=== PATIENT | male | born 1960 | race Caucasian/White ===

== ENCOUNTER 2017-06-28 11:21 | Emergency (ER) | payer MEDICARE, OTHER ==
[~2017-06-28] VITALS: Ht 170.2 cm; Wt 68.0 kg
[~2017-06-28 11:21] MED LIST: ARIP5TAB4 PO; ASPI-1071 PO; ASPI81TA52 PO; ATOR20TA66 PO; CARV3.12 PO; CARV3.122 PO; CLIN150C98 PO; FURO-150 PO; INSU100V9 SQ; LISI10TA4 PO; PANT40TA4 PO
[2017-06-28] MEDS ORDERED: CLIN-80 PO (13:11)
[2017-06-28 13:15] VITALS: BP 162/95
== END 2017-06-28 13:16 | disposition home or self-care (01) ==
LOC: ER 11:22
DX: K04.7 Periapical abscess without sinus (principal); K05.10 Chronic gingivitis, plaque induced; M25.511 Pain in right shoulder; E78.00 Pure hypercholesterolemia, unspecified; I10 Essential (primary) hypertension; E11.9 Type 2 diabetes mellitus without complications; J44.9 Chronic obstructive pulmonary disease, unspecified; Z87.891 Personal history of nicotine dependence; Z85.47 Personal history of malignant neoplasm of testis; Z88.0 Allergy status to penicillin; Z79.82 Long term (current) use of aspirin; Z79.4 Long term (current) use of insulin; Z79.899 Other long term (current) drug therapy; Z86.19 Personal history of other infectious and parasitic diseases
CPT/HCPCS: 73030; 93005; 99284

== ENCOUNTER 2017-07-18 12:09 | Emergency (ER) | payer MEDICARE, OTHER ==
[~2017-07-18 12:09] MED LIST changes: +CLIN-80 PO
== END 2017-07-18 13:44 | disposition left against medical advice (07) ==
LOC: ER 12:10
DX: H53.8 Other visual disturbances (principal); Z53.21 Procedure and treatment not carried out due to patient leaving prior to being seen by health care provider

== ENCOUNTER 2019-04-03 18:29 | Emergency (ER) | payer MEDICARE, OTHER ==
[~2019-04-03] VITALS: Ht 170.2 cm; Wt 56.5 kg
[~2019-04-03 18:29] MED LIST changes: +ARIP5TAB14 PO; -ARIP5TAB4 PO; -CLIN-80 PO
[2019-04-03 18:46] VITALS: BP 180/96
[2019-04-03 20:38] LABS: CLARITY,URINE CLEAR (Clear); COLOR,URINE YELLOW (Yellow); GLUCOSE, URINE NEGATIVE (Neg); KETONES,URINE NEGATIVE (Neg); LEUKOCYTE ESTERASE ,URINE NEGATIVE (Neg); NITRITES, URINE NEGATIVE (Neg); OCCULT BLOOD,URINE NEGATIVE (Neg); PROTEIN,URINE NEGATIVE (Neg); UROBILINOGEN,URINE 0.2 E.U/dL (0.2-1.0)
[2019-04-03 20:47] LABS: UA COLLECTION TYPE VOIDED
== END 2019-04-03 20:34 | disposition left against medical advice (07) ==
LOC: ER 18:29
DX: K40.90 Unilateral inguinal hernia, without obstruction or gangrene, not specified as recurrent (principal); E78.00 Pure hypercholesterolemia, unspecified; I10 Essential (primary) hypertension; J44.9 Chronic obstructive pulmonary disease, unspecified; E11.9 Type 2 diabetes mellitus without complications; I25.10 Atherosclerotic heart disease of native coronary artery without angina pectoris; Z88.0 Allergy status to penicillin; Z79.899 Other long term (current) drug therapy; Z79.82 Long term (current) use of aspirin; Z86.19 Personal history of other infectious and parasitic diseases
CPT/HCPCS: 81003; 99283

== ENCOUNTER 2020-01-16 19:14 | Emergency (ER) | payer OTHER, MEDICARE ==
[~2020-01-16] VITALS: Ht 167.6 cm; Wt 75.0 kg
[2020-01-16 20:03] VITALS: BP 159/85
== END 2020-01-16 20:04 ==
LOC: EEVIPCON 19:15 → ER 19:15
DX: R07.81 Pleurodynia (principal); E78.00 Pure hypercholesterolemia, unspecified; I10 Essential (primary) hypertension; J44.9 Chronic obstructive pulmonary disease, unspecified; E11.9 Type 2 diabetes mellitus without complications; Z86.19 Personal history of other infectious and parasitic diseases; Z85.9 Personal history of malignant neoplasm, unspecified; Z87.891 Personal history of nicotine dependence; Z88.0 Allergy status to penicillin; Z79.82 Long term (current) use of aspirin; Z79.899 Other long term (current) drug therapy
CPT/HCPCS: 71111; 93005; 99283

== ENCOUNTER 2023-03-19 12:12 | Emergency (ER) | payer MEDICARE, OTHER ==
[~2023-03-19] VITALS: Ht 170.2 cm; Wt 80.0 kg
[~2023-03-19 12:12] MED LIST changes: +LISI10TA27 PO; -LISI10TA4 PO; -PANT40TA4 PO; +PANT40TA54 PO
[2023-03-19 12:16] VITALS: BP 157/91; PULSE 89; RESP 18; TEMP 98; O2SAT 98
--- NOTE | 2023-03-19 13:26 | NUR ---
NOT IN LOBBY FOR HOURLY VITALS
--- NOTE | 2023-03-19 14:17 | NUR ---
pt not in lobby for hourly vitals
== END 2023-03-19 14:31 | disposition left against medical advice (07) ==
LOC: ER 12:13
DX: R45.851 Suicidal ideations (principal); Z53.21 Procedure and treatment not carried out due to patient leaving prior to being seen by health care provider
CPT/HCPCS: 99281

== ENCOUNTER 2023-04-21 08:24 | Emergency (ER) | payer MEDICARE, OTHER ==
[~2023-04-21] VITALS: Ht 167.6 cm; Wt 77.0 kg
[2023-04-21 08:49] VITALS: BP 107/46; PULSE 92; RESP 16; O2SAT 99
[2023-04-21 09:15] LABS: BASOPHILS # (AUTO) 0.1 X10'3 (0-0.2); BASOPHILS % (AUTO) 0.5 % (0-1); EOSINOPHILS # (AUTO) 0.1 X10'3 (0-0.9); EOSINOPHILS % (AUTO) 1.1 % (0-6); HEMATOCRIT 48.9 % (42.0-52.0); HEMOGLOBIN 16.6 g/dl (14.0-17.9); LYMPHOCYTES # (AUTO) 1.1 X10'3 (1.1-4.8); LYMPHOCYTES % (AUTO) 10.9 % (21-51); MEAN CORPUSCULAR HEMOGLOBIN 30.9 PG (27.0-31.0); MEAN CORPUSCULAR HGB CONC 33.8 g/dL (33.0-36.5); MEAN CORPUSCULAR VOLUME 91.3 FL (78-98); MEAN PLATELET VOLUME 10.1 FL (7.4-10.4); MONOCYTES # (AUTO) 0.7 X10'3 (0-0.9); MONOCYTES % (AUTO) 6.4 % (2-12); NEUTROPHILS # (AUTO) 8.3 X10'3 (1.8-7.7); NEUTROPHILS % (AUTO) 81.1 % (42-75); PLATELET COUNT 234 X10'3 (140-440); RED BLOOD COUNT 5.36 X10'6 (4.70-6.10); RED CELL DISTRIBUTION WIDTH 15.1 % (11.5-14.5); WHITE BLOOD COUNT 10.2 X10'3 (4.5-11.0)
[2023-04-21 09:22] LABS: BILIRUBIN,URINE NEGATIVE (Neg); CLARITY,URINE CLOUDY (Clear); COLOR,URINE YELLOW (Yellow); GLUCOSE, URINE NEGATIVE (Neg); KETONES,URINE NEGATIVE (Neg); LEUKOCYTE ESTERASE ,URINE NEGATIVE (Neg); NITRITES, URINE NEGATIVE (Neg); OCCULT BLOOD,URINE LARGE (Neg); PROTEIN,URINE NEGATIVE (Neg); UROBILINOGEN,URINE 0.2 E.U/dL (0.2-1.0)
[2023-04-21 09:30] LABS: SQUAMOUS EPITHELIAL CELL,UR FEW /LPF (FEW); UA COLLECTION TYPE CLN CATCH MIDSTREAM
[2023-04-21 09:30] LABS: ALANINE AMINOTRANSFERASE 13 U/L (12-78); ALBUMIN 4.1 G/DL (3.4-5.0); ALBUMIN/GLOBULIN RATIO 1.1 (1.1-1.5); ALKALINE PHOSPHATASE 86 IU/L (46-116); ANION GAP 7 (8-16); ASPARTATE AMINO TRANSFERASE 11 U/L (10-37); BILIRUBIN,TOTAL 0.4 MG/DL (0.1-1.0); BLOOD UREA NITROGEN 16 MG/DL (7-18); BUN/CREATININE RATIO 14.3 (10.0-20.0); CALCIUM 9.2 MG/DL (8.5-10.1); CHLORIDE 101 MMOL/L (99-107); CREATININE 1.12 MG/DL (0.60-1.10); GLUCOSE 126 MG/DL (70-104); LIPASE 41 U/L (16-77); POTASSIUM 4.4 MMOL/L (3.5-5.1); SODIUM 138 MMOL/L (135-145); TOTAL PROTEIN 7.7 G/DL (6.4-8.2); eCRCL 62 ML/MIN; eGFR 66 ML/MIN
[2023-04-21 09:31] LABS: BACTERIA,URINE NONE SEEN /HPF (Neg); RBC,URINE TNTC /HPF (0-2); WBC,URINE 0-4 /HPF (0-4)
[2023-04-21 09:32] LABS: TRANSITIONAL EPI CELLS,URINE FEW /HPF
[2023-04-21] MEDS ORDERED: CEPH-585 PO (11:01)
[2023-04-21 11:09] VITALS: TEMP 99
--- NOTE | 2023-04-21 12:46 | NUR ---
PLACED CALLS AT PROVIDERS REQUEST TO ALL THREE NUMBERS LISTED IN PTS CHART. LEFT VOICEMAIL ON THE ONLY ONE THAT ANSWERED ASKING PT TO PLEASE RETURN TO REVIEW LAB RESULTS AND GET REFERRAL PAPERWORK
--- NOTE | 2023-04-21 13:15 | NUR ---
pt not in lobby to review dc paper work
== END 2023-04-21 16:58 | disposition home or self-care (01) ==
LOC: ER 08:25
DX: R31.9 Hematuria, unspecified (principal); E78.00 Pure hypercholesterolemia, unspecified; I10 Essential (primary) hypertension; E11.9 Type 2 diabetes mellitus without complications; Z88.0 Allergy status to penicillin
CPT/HCPCS: 36415; 80053; 81001; 83690; 85025; 99283